=== PATIENT | female | born 1965 | race Caucasian/White ===

== ENCOUNTER 2018-08-09 09:59 | Day surgery (SDC) | payer BC ==
[2018-08-09] MEDS ORDERED: LIDOCAINE 2% (SDV) 5 ML INJ (11:07)
[2018-08-09] MEDS ORDERED: PROPOFOL 60 ML (11:07)
== END 2018-08-09 14:37 | disposition home or self-care (01) ==
LOC: GIL 09:59
DX: Z12.11 Encounter for screening for malignant neoplasm of colon (principal); D12.5 Benign neoplasm of sigmoid colon; K62.1 Rectal polyp; K64.8 Other hemorrhoids; I10 Essential (primary) hypertension
CPT/HCPCS: 45380; 88305